=== PATIENT | male | born 1955 | race Caucasian/White ===

== ENCOUNTER 2020-09-28 10:18 | Day surgery (SDC) | payer OTHER ==
[2020-09-25 09:02] LABS: BASOPHILS 0.6 % (0-2); EOSINOPHILS 1.9 % (0-7); HEMATOCRIT 38.7 % (42.0-54.0); HEMOGLOBIN 12.9 g/dL (13.5-17.5); IMMATURE GRANULOCYTES 0.1 % (0-5); LYMPHOCYTE ABS# 3.23 10x3/uL (1.32-3.57); LYMPHOCYTES 46.1 % (15-50); MCH 30.8 pg (26.0-34.0); MCHC 33.3 g/dL (31.0-37.0); MCV 92.4 fL (80.0-100.0); MEAN PLATELET VOLUME 9.4 fL (7.4-10.4); MONOCYTES 4.1 % (2-11); NEUTROPHILS 47.2 % (40-80); PLATELET COUNT 215 10x3/uL (130-400); RBC 4.19 10x6/uL (4.20-6.10); RDW 13.9 % (11.5-14.5)
[2020-09-25 09:21] LABS: APTT 29.6 SECONDS (22.8-39.4); INR 1.15 (0.85-1.17); PROTIME 13.6 SECONDS (11.6-15.0)
[2020-09-25 09:23] LABS: ANION GAP 11.1 mmol/L (8-16); CALCIUM 8.5 mg/dL (8.5-10.1); CARBON DIOXIDE 28.2 mmol/L (21.0-32.0); CREATININE - SERUM 1.4 mg/dL (0.6-1.3); POTASSIUM - SERUM 4.3 mmol/L (3.5-5.1)
[~2020-09-28] VITALS: Ht 190.5 cm; Wt 96.8 kg
[~2020-09-28 10:18] MED LIST: BAYER CHEWABLE81 MG; LIPITOR80 MG PO; PROCARDIA10 MG
[2020-09-28 12:28] VITALS: BP 163/75; Ht 190.5 cm; Wt 96.8 kg
--- NOTE | 2020-09-28 17:51 | NUR ---
1730 IV LEAKING TO RT AC. REMOVED AND PRESSURE HELD
--- NOTE | 2020-09-28 18:41 | NUR ---
1815 PTS FRIEND AT BEDSIDE AND INSTRUCTIONS GIVEN. PT VERY MUCH ANTICIPATING TO GO HOME BECAUSE HE STATED HIS SURGERY WAS DELAYED BY 6HRS
--- NOTE | 2020-10-02 21:27 | OP ---
PATIENT NAME: JUAREZ POOLE MEDICAL RECORD: [id number] :55 LOCATION:[facility] ADMISSION DATE: SURGEON: ZEE CHOPRA MD DATE OF OPERATION: 09/28/2020 PREOPERATIVE DIAGNOSES: 1. Left shoulder pain/impingement. 2. Long head biceps tendinitis. 3. Rotator cuff tear. POSTOPERATIVE DIAGNOSES: 1. Left shoulder pain/impingement. 2. Long head biceps tendinitis. 3. Rotator cuff tear. PROCEDURE PERFORMED: Left shoulder scope with subacromial decompression, distal clavicle excision, limited glenohumeral debridement and mini open rotator cuff repair. INDICATIONS FOR THE PROCEDURE: Mr. Poole is a 65-year-old male with history of left shoulder pain and impingement. He has been having pain for some time now and symptoms are getting progressively worse. It is difficult for him to lift and use his arm. MRI showed evidence of rotator cuff tear. He has elected to proceed with surgery for a left shoulder scope with rotator cuff repair. Risks, benefits and alternatives of surgery were discussed with the patient and consent was obtained. DESCRIPTION OF PROCEDURE: The patient was met in the holding area where his identity and comprehension of procedure was performed. The left upper extremity was marked. He was taken to the operating room where he was placed supine on the operating table, and anesthesia was administered. He was then positioned in the right lateral decubitus position. Extremities were positioned and padded appropriately. Left upper extremity was prepped and draped in a sterile fashion. The patient received preoperative antibiotics and timeout was performed before initiating the case. On initiation of the case, the subacromial space was infiltrated with 20 mL of 0.25% Marcaine with epinephrine. We then placed our posterior portal, inserted the camera placed on the anterior portal through the rotator cuff interval under direct visualization. Diagnostic shoulder arthroscopy was performed. There was a fraying at the superior labrum and along the long head of the biceps tendon. 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 Humeral head appeared to be in good condition. There was a tear at the anterior aspect of the rotator cuff full thickness. A biceps tenotomy was performed with biter and the shaver was then used to debride the stump. We also debrided the undersurface of the rotator cuff. Before and after images were obtained. We then moved to the subacromial space. There was significant inflammation throughout the subacromial space and a bone spur at the undersurface of the distal clavicle and at the anterior edge of the acromion. Cautery and the shaver and bur were used to perform a subacromial decompression. The coracoacromial ligament was also released. We then moved to the distal clavicle and after full exposure, we were able to perform a distal clavicle excision with the bur. Again, before and after images were obtained. On inspection of the rotator cuff, there was a tear at the anterior aspect involving the supraspinatus and partial infraspinatus tendons. The footprint was debrided using cautery and a bur. We then converted to a mini open procedure. Our lateral portal that was placed previously was extended and the OPERATIVE REPORT [id number] JUAREZ POOLE deltoid was split longitudinally within its fibers. A portion of the subdeltoid bursa was excised. We had good exposure of the rotator cuff. It was torn in a reverse L-type fashion. Suture was placed through the cuff. We then placed two Aby Whittemore anchors at the medial aspect of the footprint. These sutures were then passed using a [employer] suture passer through the rotator cuff beginning anterior and moving posterior. Once these were passed, they were crossed in a fast bridge type technique and secured lateral row with a [place] [employer] anchor. This provided good repair of the rotator cuff. A [employer] tissue graft was then placed over the rotator cuff and fastened with the tissue and bone anchors to complete our repair. The wound was irrigated thoroughly with saline. Deltoid was then repaired using 2-0 Vicryl suture. The subcutaneous tissue was closed with 2-0 Vicryl and the skin was closed with nylon. A sterile dressing was placed. The patient was placed into a sling, turned back over to anesthesia where he was awakened, extubated, and taken to recovery room in stable condition. POSTOPERATIVE PLAN: The patient is going to return home with his family today. He needs to remain in the sling at all times with instructions for no shoulder range of motion. Nonweightbearing left upper extremity. We will see him back in clinic in 2 weeks. ANESTHESIA: General with peripheral nerve block. COMPLICATIONS: None. ESTIMATED BLOOD LOSS: 25 mL. TRANSINT:[id number] Voice Confirmation ID: [id number] DOCUMENT ID: [id number] ZEE CHOPRA MD at 2127 CC: [id number] DICTATION DATE: 09/28/20 174 REFRIGERATION OPERATOR: 09/28/202150 [facility] 09/28/20 [id number] [place] [address]
== END 2020-09-28 18:30 | disposition home or self-care (01) ==
LOC: D.OPS 10:18
PROVIDERS: Anesthesiology; ATTEND Orthopaedic Surgery
DX: M75.42 Impingement syndrome of left shoulder (principal); M75.122 Complete rotator cuff tear or rupture of left shoulder, not specified as traumatic; M75.22 Bicipital tendinitis, left shoulder; M25.512 Pain in left shoulder